=== PATIENT | female | born 1995 | race Caucasian/White ===

== ENCOUNTER 2022-04-18 12:44 | Outpatient (CLI) | payer OTHER | END 2022-04-18 12:45 | disposition home or self-care (01) | LOC: EEG 12:44 → EEVIPCON 13:00 | PROVIDERS: ATTEND Family Medicine | DX: G40.909 Epilepsy, unspecified, not intractable, without status epilepticus (principal) | CPT/HCPCS: 95816; 95957 ==

== ENCOUNTER 2022-09-26 09:46 | Outpatient (CLI) | payer OTHER ==
[2022-09-26] MEDS ORDERED: Magnevist 469MG/ML 20 ML VIAL ONE (11:26)
[2022-09-26] MEDS ORDERED: Lorazepam 2 MG/ML VIAL ONE (11:32)
== END 2022-09-26 09:47 | disposition home or self-care (01) ==
LOC: MRI 09:46
PROVIDERS: ATTEND Nurse Practitioner Family
DX: Q04.8 Other specified congenital malformations of brain (principal)
CPT/HCPCS: 70553; A9579; J2060